=== PATIENT | male | born 1980 | race Caucasian/White ===

== ENCOUNTER 2018-07-18 16:10 | Emergency (ER) | payer MEDICAID ==
[~2018-07-18] VITALS: Ht 182.9 cm; Wt 68.2 kg
[2018-07-18] MEDS ORDERED: SUBO12MI SL (16:18)
[2018-07-18] MEDS ORDERED: ONDANSETRON 4MG/2ML VIAL (J2405) IV ONE (17:15)
[2018-07-18] MEDS ORDERED: NS 1,000 ML IV ONE (17:15)
[2018-07-18] MEDS ORDERED: KETOROLAC 30 MG/ML VIAL (J1885) IV ONE (17:15)
[2018-07-18 17:31] LABS: BASO % 0.6 % (0.0-1.0); EOS % 0.9 % (0.0-3.0); HEMATOCRIT 51.2 % (42.0-52.0); HEMOGLOBIN 17.5 g/dl (13.5-17.5); LYMPH # 1.4 10^3/uL (1.5-4.5); LYMPH % 28.9 % (24.0-44.0); MEAN CORPUSCULAR HEMOGLOBIN 33.4 pg (27.0-33.0); MEAN CORPUSCULAR HGB CONC 34.2 g/dl (32.0-36.5); MEAN CORPUSCULAR VOLUME 97.7 fl (80.0-96.0); MONO # 0.4 10^3/uL (0.0-0.8); MONO % 9.4 % (0.0-5.0); NEUTROPHILS # 2.8 10^3/uL (1.8-7.7); PLATELET COUNT, AUTOMATED 143 10^3/uL (150-450); RED BLOOD COUNT 5.24 10^6/uL (4.30-6.10); WHITE BLOOD COUNT 4.7 10^3/uL (4.0-10.0)
[2018-07-18 17:58] LABS: INR 0.94; PROTHROMBIN TIME 12.7 SECONDS (12.1-14.4)
[2018-07-18 18:03] LABS: ALBUMIN 4.1 GM/DL (3.2-5.2); ALT/SGPT 122 U/L (12-78); AMYLASE 43 U/L (25-115); BILIRUBIN,DIRECT 0.7 MG/DL (0.0-0.2); BILIRUBIN,TOTAL 1.8 MG/DL (0.2-1.0); BLOOD UREA NITROGEN 12 MG/DL (7-18); CALCIUM LEVEL 9.4 MG/DL (8.5-10.1); CARBON DIOXIDE LEVEL 28 MEQ/L (21-32); CHLORIDE LEVEL 102 MEQ/L (98-107); CREATININE FOR GFR 0.86 MG/DL (0.70-1.30); ETHYL ALCOHOL (ETHANOL) < 0.003 % (0.000-0.010); GLOMERULAR FILTRATION RATE > 60.0 (>60); GLUCOSE, FASTING 144 MG/DL (70-100); LIPASE 82 U/L (73-393); POTASSIUM SERUM 4.1 MEQ/L (3.5-5.1); SODIUM LEVEL 138 MEQ/L (136-145); TOTAL PROTEIN 8.6 GM/DL (6.4-8.2)
[2018-07-18] MEDS ORDERED: ISOVUE-370 76% 100ML VIAL (Q9967) As Ordered ONE (18:36)
[2018-07-18] MEDS ORDERED: CIPR-249 PO (20:17)
[2018-07-18] MEDS ORDERED: ZOFR4TAB16 PO (20:18)
[2018-07-18 20:37] VITALS: BP 126/90
--- NOTE | 2018-07-19 08:35 | REP ---
CT abdomen and pelvis with IV but without oral contrast: Repeat dictation. History: Hepatitis. Epigastric pain. Preliminary report is provided at the time of exam by [facility]. CT contrast dose: 100 ml of intravenous Isovue 370. CT findings: Digital preliminary center medical specialist radiograph is unremarkable. The lung bases are clear. There is moderate diffuse fatty infiltration of the liver. There is mild hepatomegaly with a 19 cm craniocaudal liver span in the midclavicular line. No focal liver lesion is seen. The spleen is at the upper range of normal in size measuring 12 cm in greatest diameter. There is a tiny accessory splenule. No adrenal lesion is seen. No pancreatic abnormality is observed. There are slightly prominent portacaval and aortocaval lymph nodes in the upper abdomen. The largest of these is the portocaval lymph node which measures 1.1 cm in short axis dimension. This is borderline. There are two or three normal sized left periaortic lymph nodes. No abdominal mass lesion is seen. Small and large intestinal bowel loops are normal in the upper abdomen. A normal appendix is seen in the right lower quadrant. Pelvic CT images show no gastrointestinal abnormality. Urinary bladder, prostate and seminal vesicles are unremarkable. No abdominal wall defect is seen. The gallbladder shows no definite abnormality. Impression: Moderate fatty infiltration of the liver. Hepatomegaly. Borderline upper abdominal lymph nodes. Spleen at the upper range of normal in size. Otherwise negative. Electronically Signed by Sunny Cruz MD 07/19/2018 03:22 P
--- NOTE | 2018-07-20 20:07 | ED PDOC ---
Post-Departure Follow-Up blanca barcenas faxed formal report of ct abd/p for fu Natalio Nichols MD Jul 20, 2018 20:07
== END 2018-07-18 20:47 | disposition home or self-care (01) ==
LOC: M ED 16:10
DX: R31.9 Hematuria, unspecified (principal); K75.9 Inflammatory liver disease, unspecified; R59.1 Generalized enlarged lymph nodes; R91.8 Other nonspecific abnormal finding of lung field; Z72.0 Tobacco use; K76.0 Fatty (change of) liver, not elsewhere classified; R16.0 Hepatomegaly, not elsewhere classified; Z79.899 Other long term (current) drug therapy
CPT/HCPCS: 36415; 74177; 80048; 80076; 81001; 82150; 83690; 85025; 85610; 96361; 96374; 96375; 99284; G0480; J1885; J2405; Q9967

== ENCOUNTER → 2019-07-01 | Outpatient (CLI) | payer OTHER ==
[~2019-07-01] MED LIST: CIPR-249 PO; SUBO12MI SL; ZOFR4TAB16 PO
[2019-07-01 14:23] LABS: ALBUMIN 4.3 GM/DL (3.2-5.2); ALT/SGPT 78 U/L (12-78); BILIRUBIN,DIRECT 0.4 MG/DL (0.0-0.2); BILIRUBIN,TOTAL 0.9 MG/DL (0.2-1.0); IRON (FE) 140 UG/DL (65-175); PERCENT SATURATION 41.4 % (19.7-50.0); TOTAL IRON BINDING CAPACITY 338 UG/DL (250-450); TOTAL PROTEIN 7.8 GM/DL (6.4-8.2)
[2019-07-02 10:25] LABS: HEPATITIS B SURFACE ANTIBODY NEGATIVE (POSITIVE)
== END ==
LOC: M LAB 12:32
PROVIDERS: ATTEND Internal Medicine Gastroenterology
DX: B18.2 Chronic viral hepatitis C (principal); R19.7 Diarrhea, unspecified

== ENCOUNTER → 2019-07-07 | Outpatient (REF) | payer OTHER ==
[2019-07-07 22:07] LABS: CLOSTRIDIUM DIFFICILE PCR NEGATIVE (NEGATIVE)
== END ==
LOC: M LAB REF 19:08
PROVIDERS: ATTEND Internal Medicine Gastroenterology
DX: R19.7 Diarrhea, unspecified (principal)

== ENCOUNTER 2019-08-22 10:53 | Day surgery (SDC) | payer MEDICAID, OTHER, SELFPAY ==
[~2019-08-22] VITALS: Ht 182.9 cm; Wt 77.1 kg
[~2019-08-22 10:53] MED LIST changes: +LIDOCAINE 2% INJ 100 MG/5 ML SDV (FOR ANES.) As Ordered ONE; +MILK175C6 PO; +NS 1,000 ML IV ONE; +PRIL20TA2 PO; +propofoL 200 MG/20 ML VIAL As Ordered ONE
[2019-08-22] MEDS ORDERED: propofoL 200 MG/20 ML VIAL As Ordered ONE (11:39)
[2019-08-22 12:20] VITALS: BP 115/81
--- NOTE | 2019-08-22 12:40 | ROOR ---
Patient Name: Jarvis Keane Procedure Date: 08/22/2019 11:28 AM Date of : 1980 Age: 38 Room: [facility] Gender: Male Note Status: Finalized Procedure: Upper GI endoscopy Indications: Dyspepsia, Hepatitis rule out esophageal varices Providers: Jeff Graham MD Referring MD: Talon Mar MD Requesting Provider: Medicines: Monitored Anesthesia Care Complications: No immediate complications. Procedure: Pre-Anesthesia Assessment: - Prior to the procedure, a History and Physical was performed, and patient medications and allergies were reviewed. The patient is competent. The risks and benefits of the procedure and the sedation options and risks were discussed with the patient. All questions were answered and informed consent was obtained. Patient identification and proposed procedure were verified by the physician, the nurse and the anesthesiologist in the procedure room. Mental Status Examination: alert and oriented. Airway Examination: normal oropharyngeal airway and neck mobility. Respiratory Examination: clear to auscultation. CV Examination: normal. Prophylactic Antibiotics: The patient does not require prophylactic antibiotics. Prior Anticoagulants: The patient has taken no previous anticoagulant or antiplatelet agents. ASA Grade Assessment: II - A patient with mild systemic disease. After reviewing the risks and benefits, the patient was deemed in satisfactory condition to undergo the procedure. The anesthesia plan was to use monitored anesthesia care (MAC). Immediately prior to administration of medications, the patient was re-assessed for adequacy to receive sedatives. The heart rate, respiratory rate, oxygen saturations, blood pressure, adequacy of pulmonary ventilation, and response to care were monitored throughout the procedure. The physical status of the patient was re-assessed after the procedure. The Endoscope was introduced through the mouth, and advanced to the second part of duodenum. The upper GI endoscopy was accomplished without difficulty. The patient tolerated the procedure well. Findings: The Z-line was regular and was found in the distal esophagus. There is no endoscopic evidence of varices in the entire esophagus. Scattered moderate inflammation characterized by congestion (edema), erythema, friability and granularity was found in the gastric antrum. Biopsies were taken with a cold forceps for Helicobacter pylori testing. Verification of patient identification for the specimen was done by the physician and nurse using the patient's name, date and medical record number. Estimated blood loss was minimal. The duodenal bulb and second portion of the duodenum were normal. Biopsies for histology were taken with a cold forceps for evaluation of celiac disease. Impression: - Z-line regular, in the distal esophagus. - Gastritis. Biopsied. - Normal duodenal bulb and second portion of the duodenum. Biopsied. Recommendation: - Patient has a contact number available for emergencies. The signs and symptoms of potential delayed complications were discussed with the patient. Return to normal activities tomorrow. Written discharge instructions were provided to the patient. - Resume previous diet. - Low sodium diet. - Continue present medications. - Await pathology results. - Telephone GI clinic for pathology results in 2 weeks. - Return to primary care physician. Jeff Graham MD Jeff Graham MD 08/22/2019 12:39:39 PM Electronically signed by Jeff Graham MD Number of Addenda: 0 Note Initiated On: 08/22/2019 11:28 AM Estimated Blood Loss: Estimated blood loss was minimal.
--- NOTE | 2019-08-22 13:05 | ROOR ---
Patient Name: Jarvis Keane Procedure Date: 08/22/2019 11:29 AM Date of : 1980 Age: 38 Room: [facility] Gender: Male Note Status: Finalized Procedure: Colonoscopy Indications: Lower abdominal pain, Chronic diarrhea Providers: Jeff Graham MD Referring MD: Talon Mar MD Requesting Provider: Medicines: Monitored Anesthesia Care Complications: No immediate complications. Procedure: Pre-Anesthesia Assessment: - Prior to the procedure, a History and Physical was performed, and patient medications and allergies were reviewed. The patient is competent. The risks and benefits of the procedure and the sedation options and risks were discussed with the patient. All questions were answered and informed consent was obtained. Patient identification and proposed procedure were verified by the physician, the nurse and the anesthesiologist in the procedure room. Mental Status Examination: alert and oriented. Airway Examination: normal oropharyngeal airway and neck mobility. Respiratory Examination: clear to auscultation. CV Examination: normal. Prophylactic Antibiotics: The patient does not require prophylactic antibiotics. Prior Anticoagulants: The patient has taken no previous anticoagulant or antiplatelet agents. ASA Grade Assessment: III - A patient with severe systemic disease. After reviewing the risks and benefits, the patient was deemed in satisfactory condition to undergo the procedure. The anesthesia plan was to use monitored anesthesia care (MAC). Immediately prior to administration of medications, the patient was re-assessed for adequacy to receive sedatives. The heart rate, respiratory rate, oxygen saturations, blood pressure, adequacy of pulmonary ventilation, and response to care were monitored throughout the procedure. The physical status of the patient was re-assessed after the procedure. The Colonoscope was introduced through the anus and advanced to the terminal ileum, with identification of the appendiceal orifice and IC valve. The colonoscopy was performed without difficulty. The patient tolerated the procedure well. The quality of the bowel preparation was poor. The terminal ileum, ileocecal valve, appendiceal orifice, and rectum were photographed. Scope insertion time was 2 minutes. Scope withdrawal time was 8 minutes. The total duration of the procedure was 10 minutes. Findings: The perianal and digital rectal examinations were normal. The terminal ileum appeared normal. Copious quantities of semi-liquid semi-solid stool was found from transverse colon to cecum, interfering with visualization. Lavage of the area was performed using a large amount of sterile water, resulting in incomplete clearance with continued poor visualization. Normal mucosa was found from rectum to transverse colon. Biopsies for histology were taken with a cold forceps from the right colon, left colon and rectosigmoid colon for evaluation of microscopic colitis. Verification of patient identification for the specimen was done by the physician and nurse using the patient's name, date and medical record number. Estimated blood loss was minimal. Multiple small and large-mouthed diverticula were found from sigmoid to descending colon. There was no evidence of diverticular bleeding. Non-bleeding external and internal hemorrhoids were found during retroflexion. The hemorrhoids were medium-sized. Impression: - Preparation of the colon was poor. - The examined portion of the ileum was normal. - Stool from transverse colon to cecum. - Normal mucosa from rectum to transverse colon. Biopsied. - Moderate diverticulosis from sigmoid to descending colon. There was no evidence of diverticular bleeding. - Non-bleeding external and internal hemorrhoids. Recommendation: - Patient has a contact number available for emergencies. The signs and symptoms of potential delayed complications were discussed with the patient. Return to normal activities tomorrow. Written discharge instructions were provided to the patient. - High fiber diet. - Continue present medications. - Await pathology results. - Repeat colonoscopy at age 50 for screening purposes. - Repeat colonoscopy PRN depending on clinical and functional status. - Return to GI clinic in [facility] (address [address], [address], [place], [address]) in 4 -- 6 weeks. Please call GI clinic @ [phone] for apppointment date and time. - Return to primary care physician. Jeff Graham MD Jeff Graham MD 08/22/2019 1:04:58 PM Electronically signed by Jeff Graham MD Number of Addenda: 0 Note Initiated On: 08/22/2019 11:29 AM Estimated Blood Loss: Estimated blood loss was minimal.
== END 2019-08-22 12:35 | disposition home or self-care (01) ==
LOC: M OPP 10:53
PROVIDERS: ATTEND Internal Medicine Gastroenterology
DX: K64.8 Other hemorrhoids (principal); K57.30 Diverticulosis of large intestine without perforation or abscess without bleeding; K52.9 Noninfective gastroenteritis and colitis, unspecified; R10.30 Lower abdominal pain, unspecified; K29.70 Gastritis, unspecified, without bleeding; K75.9 Inflammatory liver disease, unspecified; R10.13 Epigastric pain; F17.210 Nicotine dependence, cigarettes, uncomplicated; Z79.2 Long term (current) use of antibiotics; Z79.899 Other long term (current) drug therapy

== ENCOUNTER 2020-06-12 14:14 | Emergency (ER) | payer MEDICAID ==
[~2020-06-12] VITALS: Ht 182.9 cm; Wt 87.1 kg
[~2020-06-12 14:14] MED LIST changes: -LIDOCAINE 2% INJ 100 MG/5 ML SDV (FOR ANES.) As Ordered ONE; -NS 1,000 ML IV ONE; -propofoL 200 MG/20 ML VIAL As Ordered ONE
[2020-06-12 14:15] VITALS: BP 130/84
[2020-06-12] MEDS ORDERED: PROP60TA14 PO (14:22)
[2020-06-12] MEDS ORDERED: IVER1TAB PO (15:04)
[2020-06-12] MEDS ORDERED: AUGM875T28 PO (15:04)
[2020-06-12] MEDS ORDERED: PERM5CRE9 TOP (15:04)
== END 2020-06-12 15:11 | disposition home or self-care (01) ==
LOC: M ED 14:14
DX: H65.02 Acute serous otitis media, left ear (principal); B86 Scabies; F11.20 Opioid dependence, uncomplicated; F17.200 Nicotine dependence, unspecified, uncomplicated; K57.92 Diverticulitis of intestine, part unspecified, without perforation or abscess without bleeding

== ENCOUNTER 2021-09-14 11:01 | Emergency (ER) | payer OTHER ==
[~2021-09-14] VITALS: Ht 182.9 cm; Wt 81.8 kg
[~2021-09-14 11:01] MED LIST changes: +AUGM875T28 PO; +IVER1TAB PO; +PERM5CRE9 TOP; +PROP60TA14 PO
[2021-09-14] MEDS ORDERED: BUPR1FIL (11:15)
[2021-09-14] MEDS ORDERED: SOFO1TAB (11:15)
[2021-09-14 14:37] LABS: BASO % 0.3 % (0.0-1.0); EOS # 0.1 10^3/uL (0.0-0.5); EOS % 1.5 % (0.0-3.0); HEMATOCRIT 51.1 % (42.0-52.0); HEMOGLOBIN 17.6 g/dl (13.5-17.5); LYMPH % 27.6 % (24.0-44.0); MEAN CORPUSCULAR HEMOGLOBIN 33.2 pg (27.0-33.0); MEAN CORPUSCULAR HGB CONC 34.4 g/dl (32.0-36.5); MEAN CORPUSCULAR VOLUME 96.4 fl (80.0-96.0); MONO # 0.7 10^3/uL (0.0-0.8); MONO % 9.9 % (2.0-8.0); NEUTROPHILS # 4.5 10^3/uL (1.5-8.5); NEUTROPHILS % 60.6 % (36.0-66.0); PLATELET COUNT, AUTOMATED 116 10^3/uL (150-450); WHITE BLOOD COUNT 7.4 10^3/uL (4.0-10.0)
[2021-09-14] MEDS ORDERED: FAMOTIDINE 20MG/2ML VIAL IVP ONE (14:50)
[2021-09-14] MEDS ORDERED: GI COCKTAIL 50ML BTL(HYOSCYAMINE/MAALOX/LIDOCAINE VISCOUS)(1:3:1) PO ONE (14:50)
[2021-09-14] MEDS ORDERED: ONDANSETRON 4MG/2ML VIAL IV ONE (14:50)
[2021-09-14] MEDS ORDERED: NS 1,000 ML IV ONE (14:50)
[2021-09-14 15:05] LABS: ALBUMIN 4.5 GM/DL (3.2-5.2); ALT/SGPT 49 U/L (12-78); BILIRUBIN,DIRECT 0.3 MG/DL (0.0-0.2); BILIRUBIN,TOTAL 0.5 MG/DL (0.2-1.0); BLOOD UREA NITROGEN 9 MG/DL (7-18); CARBON DIOXIDE LEVEL 28 MEQ/L (21-32); CHLORIDE LEVEL 106 MEQ/L (98-107); CREATININE FOR GFR 0.96 MG/DL (0.70-1.30); GLOMERULAR FILTRATION RATE > 60.0 (>60); GLUCOSE, FASTING 95 MG/DL (70-100); LIPASE 101 U/L (73-393); POTASSIUM SERUM 3.9 MEQ/L (3.5-5.1); SODIUM LEVEL 139 MEQ/L (136-145)
[2021-09-14] MEDS ORDERED: ISOVUE-370 76% 100ML VIAL As Ordered ONE (15:08)
[2021-09-14] MEDS ORDERED: methylPREDNISolone 125MG 2ML VIAL IV ONE (16:40)
[2021-09-14] MEDS ORDERED: KETOROLAC 30 MG/ML 1ML VIAL IV ONE (16:40)
[2021-09-14] MEDS ORDERED: PRED20TA PO ×2 (16:54→17:15)
[2021-09-14] MEDS ORDERED: FAMO20TA PO ×2 (16:54→17:15)
[2021-09-14 17:07] VITALS: BP 155/96
== END 2021-09-14 17:20 | disposition home or self-care (01) ==
LOC: M ED 11:01
DX: R59.0 Localized enlarged lymph nodes (principal); R16.2 Hepatomegaly with splenomegaly, not elsewhere classified; K57.92 Diverticulitis of intestine, part unspecified, without perforation or abscess without bleeding; Z87.442 Personal history of urinary calculi; F17.200 Nicotine dependence, unspecified, uncomplicated; F10.10 Alcohol abuse, uncomplicated; F11.10 Opioid abuse, uncomplicated; Z79.899 Other long term (current) drug therapy
CPT/HCPCS: 74177; 80048; 80076; 83690; 85025; 96361; 96374; 96375; 99284; J1885; J2405; J2930; Q9967

== ENCOUNTER 2023-10-15 17:38 | Emergency (ER) | payer OTHER ==
[~2023-10-15] VITALS: Ht 182.9 cm; Wt 92.7 kg
[~2023-10-15 17:38] MED LIST changes: +BUPR1FIL; +FAMO20TA PO; +PRED20TA PO; +SOFO1TAB
[2023-10-15] MEDS ORDERED: ALBU8.5H (17:57)
[2023-10-15 22:08] LABS: BASO % 0.5 % (0.0-1.0); EOS # 0.1 10^3/uL (0.0-0.5); EOS % 2.7 % (0.0-3.0); HEMATOCRIT 29.1 % (42.0-52.0); HEMOGLOBIN 10.2 g/dl (13.5-17.5); LYMPH # 1.2 10^3/uL (1.5-5.0); LYMPH % 32.7 % (24.0-44.0); MEAN CORPUSCULAR HEMOGLOBIN 40.2 pg (27.0-33.0); MEAN CORPUSCULAR HGB CONC 35.1 g/dl (32.0-36.5); MONO # 0.3 10^3/uL (0.0-0.8); MONO % 6.9 % (2.0-8.0); NEUTROPHILS # 2.1 10^3/uL (1.5-8.5); NEUTROPHILS % 56.9 % (36.0-66.0); RED BLOOD COUNT 2.54 10^6/uL (4.30-6.10); WHITE BLOOD COUNT 3.8 10^3/uL (4.0-10.0)
[2023-10-15 22:17] LABS: MEAN CORPUSCULAR VOLUME 114.6 fl (80.0-96.0)
[2023-10-15 22:30] LABS: BLOOD UREA NITROGEN 9 MG/DL (9-23); CALCIUM LEVEL 7.9 MG/DL (8.5-10.1); CARBON DIOXIDE LEVEL 23 MMOL/L (20-31); CHLORIDE LEVEL 106 MMOL/L (98-107); GLOMERULAR FILTRATION RATE > 60.0 (>60); GLUCOSE, FASTING 92 MG/DL (60-100); POTASSIUM SERUM 3.9 MMOL/L (3.5-5.1); SODIUM LEVEL 136 MMOL/L (136-145)
[2023-10-15 22:35] LABS: PLATELET COUNT, AUTOMATED 55 10^3/uL (150-450)
[2023-10-15] MEDS: SILVER NITRATE APPLICATOR (1 = QTY 10) TOP ONE (23:00)
[2023-10-15] MEDS: NS 1,000 ML IV ONE (23:00)
[2023-10-15] MEDS: TRANEXAMIC ACID 100 MG/ML 10ML VIAL ONE (23:20)
[2023-10-16 00:16] VITALS: BP 129/73; TEMP 98.7
[2023-10-16 00:23] VITALS: O2SAT 99
[2023-10-16] MEDS ORDERED: AMOX500C PO (00:25)
[2023-10-16] MEDS: AMOXICILLIN 500 MG CAP PO ONE (00:30)
== END 2023-10-16 00:35 | disposition left against medical advice (07) ==
LOC: M ED 17:38
DX: R04.1 Hemorrhage from throat (principal); D69.6 Thrombocytopenia, unspecified; R74.02 Elevation of levels of lactic acid dehydrogenase [LDH]; G43.909 Migraine, unspecified, not intractable, without status migrainosus; F17.200 Nicotine dependence, unspecified, uncomplicated; Z87.442 Personal history of urinary calculi; Z79.52 Long term (current) use of systemic steroids; Z79.2 Long term (current) use of antibiotics; Z79.899 Other long term (current) drug therapy; Z53.9 Procedure and treatment not carried out, unspecified reason

== ENCOUNTER 2024-04-23 17:57 | Inpatient (IN) | payer OTHER ==
[~2024-04-23] VITALS: Ht 182.9 cm; Wt 86.8 kg
[~2024-04-23 17:57] MED LIST changes: +ALBU8.5H INH; +AMOX500C PO; -BUPR1FIL; +BUPR1FIL SL
[2024-04-23] MEDS ORDERED: ISOVUE-370 76% 100ML VIAL As Ordered ONE (21:05)
[2024-04-23 21:13] LABS: BASO % 0.9 % (0.0-1.0); EOS # 0.1 10^3/uL (0.0-0.5); EOS % 2.5 % (0.0-3.0); HEMATOCRIT 28.8 % (42.0-52.0); HEMOGLOBIN 9.9 g/dl (13.5-17.5); LYMPH # 1.5 10^3/uL (1.5-5.0); LYMPH % 46.9 % (24.0-44.0); MEAN CORPUSCULAR HEMOGLOBIN 37.6 pg (27.0-33.0); MEAN CORPUSCULAR HGB CONC 34.4 g/dl (32.0-36.5); MEAN CORPUSCULAR VOLUME 109.5 fl (80.0-96.0); MONO # 0.3 10^3/uL (0.0-0.8); MONO % 10.6 % (2.0-8.0); NEUTROPHILS # 1.3 10^3/uL (1.5-8.5); NEUTROPHILS % 39.1 % (36.0-66.0); RED BLOOD COUNT 2.63 10^6/uL (4.30-6.10); WHITE BLOOD COUNT 3.2 10^3/uL (4.0-10.0)
[2024-04-23 21:15] LABS: PLATELET COUNT, AUTOMATED 32 10^3/uL (150-450)
[2024-04-23 21:23] LABS: INR 1.99; PARTIAL THROMBOPLASTIN TIME 43.5 SECONDS (24.8-34.2); PROTHROMBIN TIME 22.8 SECONDS (12.5-14.5)
[2024-04-23 21:33] LABS: ALBUMIN 2.5 G/DL (3.2-5.2); ALKALINE PHOSPHATASE 146 U/L (40-129); ALT/SGPT 31 U/L (7.0-40); AST/SGOT 161 U/L (<34); BILIRUBIN,DIRECT 5.2 MG/DL (<0.4); BILIRUBIN,TOTAL 8.4 MG/DL (0.3-1.2); BLOOD UREA NITROGEN 8 MG/DL (9-23); CALCIUM LEVEL 8.1 MG/DL (8.5-10.1); CARBON DIOXIDE LEVEL 30 MMOL/L (20-31); CHLORIDE LEVEL 101 MMOL/L (98-107); CREATININE FOR GFR 0.66 MG/DL (0.70-1.30); GLOMERULAR FILTRATION RATE > 60.0 (>60); GLUCOSE, FASTING 103 MG/DL (60-100); POTASSIUM SERUM 3.7 MMOL/L (3.5-5.1); SODIUM LEVEL 137 MMOL/L (136-145); TOTAL PROTEIN 7.9 G/DL (5.7-8.2)
[2024-04-23] MEDS: PIPERACILLIN/TAZOBACTAM SOD 3.375 GM in DEXTROSE 5% (D5W) ADV/MINI-BAG 50 ML IV ONE (23:20)
[2024-04-23 23:40] LABS: LIPASE 31 U/L (12-53)
[2024-04-23 23:41] LABS: AMYLASE 52 U/L (30-118)
[2024-04-24 01:43] LABS: ETHYL ALCOHOL (ETHANOL) 0.289 % (0.000-0.010)
[2024-04-24] MEDS: THIAMINE 100 MG TAB PO SCH (06:14)
[2024-04-24] MEDS: LACTULOSE 20GM/30ML SYRUP UDC PO ONE (06:14)
[2024-04-24 07:17] LABS: HEMOGLOBIN 9.5 g/dl (13.5-17.5); MEAN CORPUSCULAR HEMOGLOBIN 37.4 pg (27.0-33.0); MEAN CORPUSCULAR HGB CONC 33.9 g/dl (32.0-36.5); MEAN CORPUSCULAR VOLUME 110.2 fl (80.0-96.0); RED BLOOD COUNT 2.54 10^6/uL (4.30-6.10); WHITE BLOOD COUNT 2.2 10^3/uL (4.0-10.0)
[2024-04-24] MEDS ORDERED: HOME MED LIST COMPLETE! XX SCH ×2 (07:25→08:05)
[2024-04-24] MEDS ORDERED: MED REC IN PROGRESS XX SCH (07:25)
[2024-04-24 07:38] LABS: PLATELET COUNT, AUTOMATED 30 10^3/uL (150-450)
[2024-04-24 07:46] LABS: ALBUMIN 2.3 G/DL (3.2-5.2); ALKALINE PHOSPHATASE 142 U/L (40-129); ALT/SGPT 28 U/L (7.0-40); AST/SGOT 138 U/L (<34); BILIRUBIN,TOTAL 10.3 MG/DL (0.3-1.2); BLOOD UREA NITROGEN 8 MG/DL (9-23); CARBON DIOXIDE LEVEL 30 MMOL/L (20-31); CHLORIDE LEVEL 101 MMOL/L (98-107); CREATININE FOR GFR 0.64 MG/DL (0.70-1.30); GLOMERULAR FILTRATION RATE > 60.0 (>60); GLUCOSE, FASTING 105 MG/DL (60-100); POTASSIUM SERUM 2.9 MMOL/L (3.5-5.1); SODIUM LEVEL 139 MMOL/L (136-145); TOTAL PROTEIN 7.4 G/DL (5.7-8.2)
[2024-04-24] MEDS ORDERED: NADO20TA PO (08:01)
[2024-04-24] MEDS ORDERED: FOLI1TAB11 PO (08:01)
[2024-04-24] MEDS ORDERED: FURO40TA2 PO (08:01)
[2024-04-24 08:45] LABS: BASO % 0.9 % (0.0-1.0); EOS # 0.1 10^3/uL (0.0-0.5); EOS % 2.7 % (0.0-3.0); HEMATOCRIT 27.6 % (42.0-52.0); HEMOGLOBIN 9.5 g/dl (13.5-17.5); LYMPH % 46.2 % (24.0-44.0); MEAN CORPUSCULAR HEMOGLOBIN 38.2 pg (27.0-33.0); MEAN CORPUSCULAR HGB CONC 34.4 g/dl (32.0-36.5); MEAN CORPUSCULAR VOLUME 110.8 fl (80.0-96.0); MONO # 0.3 10^3/uL (0.0-0.8); MONO % 13.9 % (2.0-8.0); NEUTROPHILS % 35.9 % (36.0-66.0); RED BLOOD COUNT 2.49 10^6/uL (4.30-6.10); WHITE BLOOD COUNT 2.2 10^3/uL (4.0-10.0)
[2024-04-24 08:48] LABS: NEUTROPHILS # 0.8 10^3/uL (1.5-8.5)
[2024-04-24 08:56] LABS: PLATELET COUNT, AUTOMATED 30 10^3/uL (150-450)
[2024-04-24] MEDS: ACETAMINOPHEN 325 MG TAB PO PRN (09:07)
[2024-04-24] MEDS: KETOROLAC 30 MG/ML 1ML VIAL IV PRN (09:07)
[2024-04-24] MEDS ORDERED: ALBUTEROL 90 MCG/ACT 8GM HFA INHALER INH PRN (09:25)
[2024-04-24] MEDS: MORPHINE 2 MG/ML 1ML VIAL IV PRN (09:45)
[2024-04-24 10:00] VITALS: BP 109/67; TEMP 98.6; O2SAT 94
[2024-04-24] MEDS: LORazepam 2 MG TAB PO PRN (10:16)
[2024-04-24] MEDS: MULTIVITAMINS/MINERALS THERAP 1 TAB PO SCH (11:05)
[2024-04-24] MEDS: FOLIC ACID 1MG TAB PO SCH (11:06)
[2024-04-24] MEDS: PIPERACILLIN/TAZOBACTAM SOD 3.375 GM in DEXTROSE 5% (D5W) ADV/MINI-BAG 50 ML IV SCH (11:07)
[2024-04-24 11:17] VITALS: BP 102/59
[2024-04-24] MEDS: FUROSEMIDE 40 MG TAB PO SCH (11:33)
[2024-04-24 11:35] VITALS: TEMP 98.2; O2SAT 92
[2024-04-24] MEDS: PENTOXIFYLLINE 400MG TAB PO SCH (12:15)
[2024-04-24 14:15] VITALS: BP 101/61
[2024-04-24 14:27] LABS: HEPATITIS B SURFACE ANTIGEN NEGATIVE (NEGATIVE)
[2024-04-24] MEDS: PANTOPRAZOLE 40MG VIAL IV SCH (14:33)
[2024-04-24 14:49] LABS: HEPATITIS B CORE ANTIBODY IGM NEGATIVE (NEGATIVE)
[2024-04-24 15:28] LABS: HEPATITIS C VIRUS ABY INDEX > 11.00 INDEX (<0.8)
[2024-04-24] MEDS: SUCRALFATE SUSP 1GM/10ML UD PO SCH (16:54)
[2024-04-24] MEDS: NICOTINE 21MG/24HR 1 EA TRANSDERMAL TD SCH (16:54)
[2024-04-24 19:40] VITALS: BP 111/63
[2024-04-24 19:47] VITALS: BP 111/63; TEMP 98.8; O2SAT 92
[2024-04-24] MEDS: POTASSIUM CHLORIDE 10% LIQ 20MEQ/15ML UDC PO ONE (20:11)
[2024-04-24] MEDS: predniSONE 20 MG TAB PO SCH (20:14)
[2024-04-24] MEDS: KETOROLAC 30 MG/ML 1ML VIAL IV ONE (21:52)
[2024-04-24 22:09] LABS: BLOOD UREA NITROGEN 12 MG/DL (9-23); CALCIUM LEVEL 8.1 MG/DL (8.5-10.1); CARBON DIOXIDE LEVEL 27 MMOL/L (20-31); CHLORIDE LEVEL 102 MMOL/L (98-107); GLOMERULAR FILTRATION RATE > 60.0 (>60); GLUCOSE, FASTING 119 MG/DL (60-100); POTASSIUM SERUM 3.9 MMOL/L (3.5-5.1); SODIUM LEVEL 136 MMOL/L (136-145)
[2024-04-25] VITALS (13 sets, daily range): BP systolic 115–141; BP diastolic 61–88; TEMP 97–98.8; O2SAT 94–98
[2024-04-25] MEDS: LIDOCAINE 5% (LIDODERM) PATCH TD ONE (02:31)
[2024-04-25] MEDS: MORPHINE 2 MG/ML 1ML VIAL IV ONE (02:31)
[2024-04-25] MEDS: MORPHINE 2 MG/ML 1ML VIAL IV PRN (05:59)
[2024-04-25 06:19] LABS: HEMATOCRIT 28.4 % (42.0-52.0); HEMOGLOBIN 9.7 g/dl (13.5-17.5); LYMPH # 0.4 10^3/uL (1.5-5.0); LYMPH % 26.3 % (24.0-44.0); MEAN CORPUSCULAR HEMOGLOBIN 37.3 pg (27.0-33.0); MEAN CORPUSCULAR HGB CONC 34.2 g/dl (32.0-36.5); MEAN CORPUSCULAR VOLUME 109.2 fl (80.0-96.0); MONO # 0.1 10^3/uL (0.0-0.8); MONO % 8.6 % (2.0-8.0); NEUTROPHILS % 64.4 % (36.0-66.0); WHITE BLOOD COUNT 1.5 10^3/uL (4.0-10.0)
[2024-04-25 06:34] LABS: INR 2.14
[2024-04-25 06:57] LABS: ALBUMIN 2.2 G/DL (3.2-5.2); ALKALINE PHOSPHATASE 135 U/L (40-129); ALT/SGPT 25 U/L (7.0-40); AST/SGOT 110 U/L (<34); BILIRUBIN,TOTAL 11.9 MG/DL (0.3-1.2); BLOOD UREA NITROGEN 13 MG/DL (9-23); CALCIUM LEVEL 8.6 MG/DL (8.5-10.1); CARBON DIOXIDE LEVEL 29 MMOL/L (20-31); CHLORIDE LEVEL 102 MMOL/L (98-107); CREATININE FOR GFR 0.64 MG/DL (0.70-1.30); GLOMERULAR FILTRATION RATE > 60.0 (>60); GLUCOSE, FASTING 133 MG/DL (60-100); POTASSIUM SERUM 3.7 MMOL/L (3.5-5.1); SODIUM LEVEL 136 MMOL/L (136-145); TOTAL PROTEIN 7.3 G/DL (5.7-8.2)
[2024-04-25 07:02] LABS: PLATELET COUNT, AUTOMATED 28 10^3/uL (150-450)
[2024-04-25] MEDS: ONDANSETRON 4MG 2ML VIAL IV PRN (08:33)
[2024-04-25] MEDS ORDERED: FOLIC ACID 1MG TAB PO SCH (09:00)
[2024-04-25] MEDS ORDERED: FILGRASTIM 300MCG 0.5ML SYRINGE **SC ADMINISTRATION ONLY SC SCH (09:00)
[2024-04-25] MEDS: prednisoLONE (PRELONE) 15MG/5ML SYRUP UDC PO SCH (10:20)
[2024-04-25 14:21] LABS: IRON (FE) 168 UG/DL (65-175)
[2024-04-25 14:23] LABS: FERRITIN 186.9 NG/ML (10.5-307.3); FOLATE 9.27 NG/ML (>5.4)
[2024-04-25 14:24] LABS: VITAMIN B12 LEVEL 961 PG/ML (211-911)
[2024-04-25 14:28] LABS: PERCENT SATURATION 74.3 % (19.7-50.0); TOTAL IRON BINDING CAPACITY 226 UG/DL (250-425)
[2024-04-26] VITALS (9 sets, daily range): BP systolic 115–127; BP diastolic 66–75; TEMP 98.1–98.6; O2SAT 80–98
[2024-04-26 06:52] LABS: BASO % 0.4 % (0.0-1.0); EOS % 0.7 % (0.0-3.0); HEMATOCRIT 25.7 % (42.0-52.0); HEMOGLOBIN 8.8 g/dl (13.5-17.5); LYMPH # 1.1 10^3/uL (1.5-5.0); LYMPH % 38.5 % (24.0-44.0); MEAN CORPUSCULAR HEMOGLOBIN 37.9 pg (27.0-33.0); MEAN CORPUSCULAR HGB CONC 34.2 g/dl (32.0-36.5); MEAN CORPUSCULAR VOLUME 110.8 fl (80.0-96.0); MONO # 0.3 10^3/uL (0.0-0.8); MONO % 10.6 % (2.0-8.0); NEUTROPHILS # 1.4 10^3/uL (1.5-8.5); NEUTROPHILS % 49.4 % (36.0-66.0); RED BLOOD COUNT 2.32 10^6/uL (4.30-6.10); WHITE BLOOD COUNT 2.7 10^3/uL (4.0-10.0)
[2024-04-26 06:57] LABS: PLATELET COUNT, AUTOMATED 27 10^3/uL (150-450)
[2024-04-26 07:01] LABS: INR 2.4; PROTHROMBIN TIME 26.2 SECONDS (12.5-14.5)
[2024-04-26 07:17] LABS: ALBUMIN 2.1 G/DL (3.2-5.2); ALKALINE PHOSPHATASE 125 U/L (40-129); ALT/SGPT 23 U/L (7.0-40); AST/SGOT 89 U/L (<34); BILIRUBIN,TOTAL 9.2 MG/DL (0.3-1.2); BLOOD UREA NITROGEN 13 MG/DL (9-23); CALCIUM LEVEL 8.3 MG/DL (8.5-10.1); CARBON DIOXIDE LEVEL 30 MMOL/L (20-31); CHLORIDE LEVEL 104 MMOL/L (98-107); CREATININE FOR GFR 0.68 MG/DL (0.70-1.30); GLOMERULAR FILTRATION RATE > 60.0 (>60); GLUCOSE, FASTING 98 MG/DL (60-100); POTASSIUM SERUM 3.4 MMOL/L (3.5-5.1); SODIUM LEVEL 137 MMOL/L (136-145); TOTAL PROTEIN 7.2 G/DL (5.7-8.2)
[2024-04-26] MEDS: POTASSIUM CHLORIDE 10MEQ SR TABLET PO ONE (08:18)
[2024-04-26] MEDS: FILGRASTIM 480 MCG/0.8 ML SYRINGE **SC ADMINISTRATION ONLY SC ONE (09:59)
[2024-04-26] MEDS: MOM 30ML SUSPENSION UDC PO PRN (14:30)
[2024-04-26 16:48] LABS: D-DIMER QUANT 1.28 ug/mL (<0.5)
[2024-04-27] VITALS (9 sets, daily range): BP systolic 119–133; BP diastolic 74–83; TEMP 98.1–99; O2SAT 97–100
[2024-04-27 06:25] LABS: BASO % 0.2 % (0.0-1.0); EOS % 0.6 % (0.0-3.0); HEMATOCRIT 26.9 % (42.0-52.0); HEMOGLOBIN 9.2 g/dl (13.5-17.5); LYMPH # 1.5 10^3/uL (1.5-5.0); LYMPH % 24.1 % (24.0-44.0); MEAN CORPUSCULAR HEMOGLOBIN 38.3 pg (27.0-33.0); MEAN CORPUSCULAR HGB CONC 34.2 g/dl (32.0-36.5); MEAN CORPUSCULAR VOLUME 112.1 fl (80.0-96.0); MONO # 0.4 10^3/uL (0.0-0.8); MONO % 6.3 % (2.0-8.0); NEUTROPHILS # 4.1 10^3/uL (1.5-8.5); NEUTROPHILS % 65.6 % (36.0-66.0); WHITE BLOOD COUNT 6.2 10^3/uL (4.0-10.0)
[2024-04-27 06:28] LABS: PLATELET COUNT, AUTOMATED 25 10^3/uL (150-450)
[2024-04-27 06:37] LABS: INR 2.47; PROTHROMBIN TIME 26.8 SECONDS (12.5-14.5)
[2024-04-27 06:47] LABS: ALBUMIN 2.2 G/DL (3.2-5.2); ALKALINE PHOSPHATASE 123 U/L (40-129); ALT/SGPT 26 U/L (7.0-40); AST/SGOT 79 U/L (<34); BILIRUBIN,TOTAL 8.5 MG/DL (0.3-1.2); BLOOD UREA NITROGEN 11 MG/DL (9-23); CALCIUM LEVEL 8.4 MG/DL (8.5-10.1); CARBON DIOXIDE LEVEL 29 MMOL/L (20-31); CHLORIDE LEVEL 104 MMOL/L (98-107); GLOMERULAR FILTRATION RATE > 60.0 (>60); GLUCOSE, FASTING 89 MG/DL (60-100); POTASSIUM SERUM 3.3 MMOL/L (3.5-5.1); SODIUM LEVEL 137 MMOL/L (136-145); TOTAL PROTEIN 6.9 G/DL (5.7-8.2)
[2024-04-27] MEDS: POTASSIUM CHLORIDE 10MEQ SR TABLET PO ONE (08:14)
[2024-04-27] MEDS ORDERED: MULT-90 PO (19:04)
[2024-04-27] MEDS ORDERED: PRED15SO24 PO (19:04)
[2024-04-27] MEDS ORDERED: SUCR1TA PO (19:04)
[2024-04-27] MEDS ORDERED: NICO21PAT TD (19:04)
[2024-04-27 20:13] LABS: HEMATOCRIT 28.1 % (42.0-52.0); HEMOGLOBIN 9.3 g/dl (13.5-17.5); MEAN CORPUSCULAR HEMOGLOBIN 37.3 pg (27.0-33.0); MEAN CORPUSCULAR HGB CONC 33.1 g/dl (32.0-36.5); MEAN CORPUSCULAR VOLUME 112.9 fl (80.0-96.0); RED BLOOD COUNT 2.49 10^6/uL (4.30-6.10); WHITE BLOOD COUNT 4.8 10^3/uL (4.0-10.0)
[2024-04-27 20:16] LABS: PLATELET COUNT, AUTOMATED 30 10^3/uL (150-450)
[2024-04-28] VITALS (10 sets, daily range): BP systolic 111–131; BP diastolic 76–90; TEMP 98.2–98.6; O2SAT 98–100
[2024-04-28 06:50] LABS: BASO % 0.5 % (0.0-1.0); EOS # 0.1 10^3/uL (0.0-0.5); EOS % 1.2 % (0.0-3.0); HEMATOCRIT 27.3 % (42.0-52.0); HEMOGLOBIN 9.1 g/dl (13.5-17.5); LYMPH # 1.5 10^3/uL (1.5-5.0); LYMPH % 34.8 % (24.0-44.0); MEAN CORPUSCULAR HEMOGLOBIN 37.1 pg (27.0-33.0); MEAN CORPUSCULAR HGB CONC 33.3 g/dl (32.0-36.5); MEAN CORPUSCULAR VOLUME 111.4 fl (80.0-96.0); MONO # 0.4 10^3/uL (0.0-0.8); MONO % 8.8 % (2.0-8.0); NEUTROPHILS # 2.3 10^3/uL (1.5-8.5); NEUTROPHILS % 53.7 % (36.0-66.0); RED BLOOD COUNT 2.45 10^6/uL (4.30-6.10); WHITE BLOOD COUNT 4.2 10^3/uL (4.0-10.0)
[2024-04-28 06:54] LABS: PLATELET COUNT, AUTOMATED 33 10^3/uL (150-450)
[2024-04-28 06:56] LABS: INR 2.5
[2024-04-28 07:06] LABS: ALBUMIN 2.1 G/DL (3.2-5.2); ALKALINE PHOSPHATASE 122 U/L (40-129); ALT/SGPT 28 U/L (7.0-40); AST/SGOT 72 U/L (<34); BILIRUBIN,TOTAL 7.7 MG/DL (0.3-1.2); BLOOD UREA NITROGEN 13 MG/DL (9-23); CALCIUM LEVEL 8.3 MG/DL (8.5-10.1); CARBON DIOXIDE LEVEL 29 MMOL/L (20-31); CHLORIDE LEVEL 105 MMOL/L (98-107); GLOMERULAR FILTRATION RATE > 60.0 (>60); GLUCOSE, FASTING 86 MG/DL (60-100); POTASSIUM SERUM 3.5 MMOL/L (3.5-5.1); SODIUM LEVEL 137 MMOL/L (136-145); TOTAL PROTEIN 7.1 G/DL (5.7-8.2)
[2024-04-28 11:49] LABS: HCV RNA QUANTITATION <15 NOT DETECTED IU/mL (NOT DETECTED); HCV RNA log10 <1.18 NOT DETECTED Log IU/mL (NOT DETECTED)
[2024-04-28] MEDS: PHYTONADIONE 2.5 MG **1/2 TAB PO ONE (12:16)
[2024-04-29] VITALS (7 sets, daily range): BP systolic 112–126; BP diastolic 72–74; TEMP 98.2–98.8; O2SAT 97–100
[2024-04-29] MEDS: MAALOX 30 ML SUSP *UDC PO ONE (01:14)
[2024-04-29 06:28] LABS: BASO % 0.3 % (0.0-1.0); EOS # 0.1 10^3/uL (0.0-0.5); EOS % 1.4 % (0.0-3.0); HEMATOCRIT 27.3 % (42.0-52.0); HEMOGLOBIN 9.4 g/dl (13.5-17.5); LYMPH # 1.2 10^3/uL (1.5-5.0); LYMPH % 34.6 % (24.0-44.0); MEAN CORPUSCULAR HEMOGLOBIN 38.2 pg (27.0-33.0); MEAN CORPUSCULAR HGB CONC 34.4 g/dl (32.0-36.5); MONO # 0.3 10^3/uL (0.0-0.8); MONO % 9.1 % (2.0-8.0); NEUTROPHILS # 1.9 10^3/uL (1.5-8.5); RED BLOOD COUNT 2.46 10^6/uL (4.30-6.10); WHITE BLOOD COUNT 3.5 10^3/uL (4.0-10.0)
[2024-04-29 06:33] LABS: PLATELET COUNT, AUTOMATED 34 10^3/uL (150-450)
[2024-04-29 06:40] LABS: INR 2.48; PROTHROMBIN TIME 26.9 SECONDS (12.5-14.5)
[2024-04-29 06:45] LABS: ALBUMIN 2.2 G/DL (3.2-5.2); ALKALINE PHOSPHATASE 118 U/L (40-129); ALT/SGPT 31 U/L (7.0-40); AST/SGOT 71 U/L (<34); BILIRUBIN,DIRECT 4.8 MG/DL (<0.4); BILIRUBIN,TOTAL 7.6 MG/DL (0.3-1.2); BLOOD UREA NITROGEN 12 MG/DL (9-23); CALCIUM LEVEL 8.2 MG/DL (8.5-10.1); CARBON DIOXIDE LEVEL 27 MMOL/L (20-31); CHLORIDE LEVEL 103 MMOL/L (98-107); CREATININE FOR GFR 0.66 MG/DL (0.70-1.30); GLOMERULAR FILTRATION RATE > 60.0 (>60); GLUCOSE, FASTING 91 MG/DL (60-100); POTASSIUM SERUM 3.2 MMOL/L (3.5-5.1); SODIUM LEVEL 136 MMOL/L (136-145)
[2024-04-29 06:46] LABS: D-DIMER QUANT 0.64 ug/mL (<0.5)
[2024-04-29] MEDS: POTASSIUM CHLORIDE 10MEQ SR TABLET PO ONE (10:08)
[2024-04-29] MEDS: PHYTONADIONE 2.5 MG **1/2 TAB PO ONE (20:13)
[2024-04-30] VITALS (8 sets, daily range): BP systolic 110–115; BP diastolic 69–72; TEMP 98.1–99; O2SAT 96–100
[2024-04-30 06:28] LABS: BASO % 0.3 % (0.0-1.0); EOS # 0.1 10^3/uL (0.0-0.5); HEMATOCRIT 27.2 % (42.0-52.0); HEMOGLOBIN 9.2 g/dl (13.5-17.5); LYMPH # 1.2 10^3/uL (1.5-5.0); LYMPH % 38.5 % (24.0-44.0); MEAN CORPUSCULAR HGB CONC 33.8 g/dl (32.0-36.5); MEAN CORPUSCULAR VOLUME 112.4 fl (80.0-96.0); MONO # 0.4 10^3/uL (0.0-0.8); MONO % 13.6 % (2.0-8.0); NEUTROPHILS # 1.4 10^3/uL (1.5-8.5); NEUTROPHILS % 45.3 % (36.0-66.0); RED BLOOD COUNT 2.42 10^6/uL (4.30-6.10)
[2024-04-30 06:32] LABS: PLATELET COUNT, AUTOMATED 34 10^3/uL (150-450)
[2024-04-30 06:51] LABS: D-DIMER QUANT 0.52 ug/mL (<0.5)
[2024-04-30 06:57] LABS: ALBUMIN 2.1 G/DL (3.2-5.2); ALKALINE PHOSPHATASE 118 U/L (40-129); ALT/SGPT 32 U/L (7.0-40); AST/SGOT 70 U/L (<34); BILIRUBIN,TOTAL 6.4 MG/DL (0.3-1.2); BLOOD UREA NITROGEN 12 MG/DL (9-23); CALCIUM LEVEL 8.4 MG/DL (8.5-10.1); CARBON DIOXIDE LEVEL 25 MMOL/L (20-31); CHLORIDE LEVEL 105 MMOL/L (98-107); CREATININE FOR GFR 0.64 MG/DL (0.70-1.30); GLOMERULAR FILTRATION RATE > 60.0 (>60); GLUCOSE, FASTING 87 MG/DL (60-100); POTASSIUM SERUM 3.6 MMOL/L (3.5-5.1); SODIUM LEVEL 137 MMOL/L (136-145); TOTAL PROTEIN 6.6 G/DL (5.7-8.2)
[2024-04-30 10:15] LABS: INR 2.44; PARTIAL THROMBOPLASTIN TIME 39.5 SECONDS (24.8-34.2); PROTHROMBIN TIME 26.6 SECONDS (12.5-14.5)
[2024-04-30] MEDS ORDERED: MORPHINE SULFATE TAB EXT REL 15 MG PO ONE (12:00)
[2024-04-30] MEDS ORDERED: oxyCODONE 5MG TAB PO PRN (12:25)
[2024-04-30] MEDS: oxyCODONE 5MG TAB PO PRN (12:44)
[2024-04-30] MEDS: METOCLOPRAMIDE 10MG TAB PO SCH (17:52)
[2024-04-30] MEDS: PANTOPRAZOLE 40MG TAB (PROTONIX) PO SCH (20:58)
[2024-05-01 05:00] VITALS: BP 115/69
[2024-05-01 05:07] VITALS: BP 115/69; TEMP 98.4; O2SAT 99
[2024-05-01 06:23] LABS: BASO % 0.3 % (0.0-1.0); EOS % 1.3 % (0.0-3.0); HEMATOCRIT 27.7 % (42.0-52.0); HEMOGLOBIN 9.6 g/dl (13.5-17.5); LYMPH # 1.2 10^3/uL (1.5-5.0); LYMPH % 35.9 % (24.0-44.0); MEAN CORPUSCULAR HEMOGLOBIN 38.4 pg (27.0-33.0); MEAN CORPUSCULAR HGB CONC 34.7 g/dl (32.0-36.5); MEAN CORPUSCULAR VOLUME 110.8 fl (80.0-96.0); MONO # 0.4 10^3/uL (0.0-0.8); MONO % 13.4 % (2.0-8.0); NEUTROPHILS # 1.6 10^3/uL (1.5-8.5); NEUTROPHILS % 48.5 % (36.0-66.0); WHITE BLOOD COUNT 3.2 10^3/uL (4.0-10.0)
[2024-05-01 06:25] LABS: PLATELET COUNT, AUTOMATED 38 10^3/uL (150-450)
[2024-05-01 06:37] LABS: D-DIMER QUANT 0.48 ug/mL (<0.5); INR 2.29; PARTIAL THROMBOPLASTIN TIME 38.9 SECONDS (24.8-34.2); PROTHROMBIN TIME 25.3 SECONDS (12.5-14.5)
[2024-05-01 06:50] LABS: ALBUMIN 2.1 G/DL (3.2-5.2); ALKALINE PHOSPHATASE 124 U/L (40-129); ALT/SGPT 38 U/L (7.0-40); AST/SGOT 72 U/L (<34); BILIRUBIN,TOTAL 6.2 MG/DL (0.3-1.2); BLOOD UREA NITROGEN 10 MG/DL (9-23); CALCIUM LEVEL 8.4 MG/DL (8.5-10.1); CARBON DIOXIDE LEVEL 26 MMOL/L (20-31); CHLORIDE LEVEL 106 MMOL/L (98-107); CREATININE FOR GFR 0.68 MG/DL (0.70-1.30); GLOMERULAR FILTRATION RATE > 60.0 (>60); GLUCOSE, FASTING 86 MG/DL (60-100); POTASSIUM SERUM 3.7 MMOL/L (3.5-5.1); SODIUM LEVEL 138 MMOL/L (136-145); TOTAL PROTEIN 6.6 G/DL (5.7-8.2)
[2024-05-01 12:00] VITALS: BP_SYST 110; BP_SYST 138; BP_DIAS 69; BP_DIAS 81; TEMP 98.4; O2SAT 95
[2024-05-01] MEDS ORDERED: PANT40TA29 PO (13:37)
== END 2024-05-01 16:30 | disposition home or self-care (01) | DRG 280 ==
LOC: M ED 17:57 → EEVIPCON 04-24 05:51 → M ED INP 04-24 05:51 → M MSPAV 04-24 09:59
PROVIDERS: ADMIT Internal Medicine; ATTEND Hospitalist
DX: K70.30 Alcoholic cirrhosis of liver without ascites (principal); D61.818 Other pancytopenia; D69.6 Thrombocytopenia, unspecified; K82.1 Hydrops of gallbladder; F11.20 Opioid dependence, uncomplicated; R16.0 Hepatomegaly, not elsewhere classified; K70.10 Alcoholic hepatitis without ascites; E87.6 Hypokalemia; F10.20 Alcohol dependence, uncomplicated; G43.909 Migraine, unspecified, not intractable, without status migrainosus; J44.9 Chronic obstructive pulmonary disease, unspecified; J45.909 Unspecified asthma, uncomplicated; K21.9 Gastro-esophageal reflux disease without esophagitis; R21 Rash and other nonspecific skin eruption; F17.200 Nicotine dependence, unspecified, uncomplicated; Z79.899 Other long term (current) drug therapy; K29.20 Alcoholic gastritis without bleeding; K70.0 Alcoholic fatty liver